=== PATIENT | female | born 1945 | race Caucasian/White ===

== ENCOUNTER → 2016-09-23 | Outpatient (CLI) | payer OTHER, MEDICARE ==
[~2016-09-23] VITALS: Ht 149.9 cm; Wt 62.6 kg
[~2016-09-23] MED LIST: ALBUTEROL2.5 MG/31 INH; ALEVE220 MG PO; AMARYL2 MG PO; AMLODIPINE BESY10 MG PO; ATORVASTATIN CA40 MG PO; BENEFIBER1 EAC1 PO; BROVANA15 MCG/2 M INH; BUDESONIDE0.5 MG/2 M IH; CALCIUM 500 +1 EAC5 PO; CEPACOL SORETH1 EAC1 PO; COLACE100 MG PO; HYDROCODONE-APA1 TA1 PO; METFORMIN HCL1000 MG PO; MUCINEX TA600 MG/TA2 PO; PREDNISONE 10 M10 MG PO; SPIRIVA INH; TRICOR145 MG PO; UNICOMPLEX M TA1 TA1 PO; VENTOLIN HFA 1818 GM INH; XANAX 0.5 MG0.5 MG PO; ZANTAC 150MG T150 MG PO
[2016-09-23 09:42] VITALS: BP 155/60
[2016-09-23 10:02] LABS: HEMATOCRIT 22.5 % (37.0-47.0); HEMOGLOBIN 7.3 gm/dL (12.0-15.0); MCH 26.5 pg (26.0-34.0); MCHC 32.6 g/dL (28.0-37.0); MCV 81.3 fL (80.0-100.0); RBC 2.76 mil/uL (4.20-5.00); RDW 14.7 % (10.5-14.5); WBC 10.6 thou/uL (4.0-11.0)
[2016-09-23 10:15] LABS: PROTIME 10.8 Seconds (9.3-11.4)
== END ==
LOC: SPEC 09:00
PROVIDERS: Radiology Vascular & Interventional Radiology
DX: M48.56XA Collapsed vertebra, not elsewhere classified, lumbar region, initial encounter for fracture (principal); J44.9 Chronic obstructive pulmonary disease, unspecified; E78.4 Other hyperlipidemia; E11.9 Type 2 diabetes mellitus without complications; I10 Essential (primary) hypertension; K21.9 Gastro-esophageal reflux disease without esophagitis; D64.89 Other specified anemias; Z87.891 Personal history of nicotine dependence
CPT/HCPCS: 62110; 62900; 70005